=== PATIENT | male | born 1945 | race Caucasian/White ===

== ENCOUNTER 2016-03-01 06:03 | Day surgery (SDC) | payer MEDICARE ==
[~2016-03-01 06:03] MED LIST: CEFAZOLIN SODIUM 2 GRAM PREMIX 100 ML IV SCH; IV START KIT ONE; LACTATED RINGERS 1,000 ML ONE
[2016-03-01] MEDS ORDERED: CEFAZOLIN SODIUM 2 GRAM PREMIX 100 ML IV ONE (06:29)
[2016-03-01] MEDS ORDERED: MIDAZOLAM HCL 5 MG/5 ML VIAL ONE (06:50)
[2016-03-01] MEDS ORDERED: FENTANYL 100 MCG/2 ML VIAL ONE (06:50)
[2016-03-01] MEDS ORDERED: PROPOFOL 0 ML IV ONE (06:50)
[2016-03-01] MEDS ORDERED: BUPIVACAINE 0.5% (PRES FREE) 30 ML VIAL ONE (06:52)
[2016-03-01] MEDS ORDERED: KETOROLAC TROMETHAMINE 30 MG/ML 1 ML VIAL ONE (07:57)
--- NOTE | 2016-03-01 08:24 | PCMBPN ---
Brief Post Op Note: Date of Procedure: 03/01/16 Preoperative Diagnosis: 1. left carpal tunnel syndrome Postoperative Diagnosis: 1. [Same] Procedure: left open carpal tunnel release Surgeon: Arie Castaneda MD Assist: None Anesthesia: Local with sedation (10mL 0.5% marcaine injected into the incision) Findings: as expected, the median nerve was protected as the transverse carpal ligament was transected Condition: Stable vitals, transferred to pacu Complications: None IV Fluids: 900 mLs of LR Urine Output:0 mLs Estimated Blood Loss:5 mLs Tourniquet Time: 12 min at 250mmHg Specimens: [N/A] Implants: None Drains: [N/A] PLAN: NWB on the RUE. Splint for comfort. Oxycodone for pain control post-op.
--- NOTE | 2016-03-01 08:33 | HP ---
DATE OF CLINIC: 02/24/2016 REYNA FOSTER : 1945 PLANNED PROCEDURE: Left Hand Open Carpal Tunnel Release DATE OF SURGERY: March 01, 2016 SURGEON: Arie Castaneda M.D. HISTORY OF PRESENT ILLNESS Reyna Foster is a 70 year old male. * Medication list reviewed with patient allergy list reviewed with patient. * Tried NSAIDS * Has not tried Physical Therapy Has tried night time bracing for right side * Has not tried Injections The patient is a 70 yr old male who is RHD who present to the office with complaints of bilateral hand numbness and tingling. 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 He states pain is worse at night and often has to shake his hands. His symptoms are worse on the left hand. He has constant numbness in both hands in a median nerve distribution. He returns to the office today to talk about moving forward with a left hand open carpal tunnel release. The patient states that he has finished a big portion of his [place] home remodel. He does think his symptoms and parasthesias in his left thumb, index, and long finger are improved now that he is not doing the remodeling work but he would still like to move ahead with surgery. He is here today to discuss the risks and benefits associated with a left open carpal tunnel release. PMH: He has tried wearing removal wrist braces and the discomfort has awoken him at night. He does not have any neck pain. He has not had any surgeries or injections in either hand and would like to talk to me about his options. The patient states he has already had an EMG/NCV study performed by Dr. Galaviz concerning for a left and right carpal tunnel symptoms. He is here today to discuss about his options. CURRENT MEDICATION * *Supplement Miscellaneous Fish oil, 0 days, 0 refills * Ibuprofen 200 MG Tablet as needed 0 days, 0 refills * Lisinopril-Hydrochlorothiazide 20-12.5 MG Tablet TAKE ONE TABLET BY MOUTH EVERY DAY, 90 days, 2 refills * Probenecid 500 MG Tablet 1 once a day TAKE ONE TABLET BY MOUTH TWICE A DAY, 180 days, 1 refills PAST MEDICAL/SURGICAL HISTORY Reported: Medical: A history of cancer skin cancer - 03/2011, history of Arthritis, Gout, Hypertension, and Vertigo. Surgical / Procedural: Arthroscopy MM left knee - 2001. Basal Cell CA. SOCIAL HISTORY Behavioral: Daily coffee consumption and daily tea consumption. No tobacco use, not a current smoker, not a former smoker, and not chewing tobacco. Never smoked. Smoking status: Never smoker. Alcohol: Alcohol Occ. 2 drinks per week, alcohol use 2 drinks a week, and a social drinker. Drug Use: Not using drugs. ALLERGIES * Allopurinol Reaction: Skin Rashes/Hives FAMILY HISTORY Cancer GM-Colon Family History Diabetes Melliutus Sister Hypertension Family medical history Mother - OA Father - prostate cancer REVIEW OF SYSTEMS Systemic: No fever and no recent weight change. Cardiovascular: No chest pain or discomfort and no palpitations. Pulmonary: No cough and no wheezing. Gastrointestinal: No nausea, no vomiting, no abdominal pain, and no diarrhea. Hematologic: No easy bleeding (no blood clots). Neurological: No motor disturbances and no sensory disturbances. Skin: No skin lesions and no rash. PHYSICAL FINDINGS * Vitals taken 02/24/2016 01:50 pm BP-Sitting L 133/80 mmHg 100 - 120/60 - 80 BP Cuff Size Regular Pulse Rate-Sitting 97 bpm 50 - 100 Temp-Oral 98.8 F 96 - 101 Height 68 in 64 - 74 Weight 227 lbs 123 - 215 Body Mass Index 34.5 kg/m2 Body Surface Area 2.16 m2 Pain Level 1 General Appearance: * Well developed. * In no acute distress. Eyes: General/bilateral: Extraocular Movements: * Normal. Lungs: * Clear to auscultation. * No wheezing was heard. * No rales/crackles were heard. Cardiovascular: Heart Rate and Rhythm: * Heart rate was normal. * Heart rhythm regular. Abdomen: Palpation: * Abdominal non-tender. Neurological: * Oriented to time, place, and person. Motor: * Dominant Hand = Right Hand. * Dominant Hand = Left Hand. PHYSICAL FINDINGS RIGHT EXTREMITY Wrist Appearance: No gross abnormalities. Normal [id number] and no gross abnormalities are appreciated. AROM Flexion: 60 degrees Extension: 50 degrees Supination: 80 degrees Pronation: 90 degrees Palpation Wrist is non-tender to touch Strength (0-5/5) Wrist Flexion: 5/5 Wrist Extension: 5/5 Wrist Supination: 5/5 Wrist Pronation: 5/5 Head Resident: 5/5 Intrinsics: 5/5 EPL, FF, FE: 5/5 Pinch Mechanism: Normal Sensation (Wrist): gross sensation to light touch is present Median: Decreased Ulnar: Normal Radial: Normal Vascular Exam Radial Pulse: 2+ Other (Wrist) Atrophy/Asymmetry: None Surgical Scars: None Francisco's Test: Negative Tinel's Test - Carpal Tunnel: Negative Phalen's Test: POSITIVE Median Nerve Compression Test: POSITIVE PHYSICAL FINDINGS LEFT EXTREMITY Wrist Appearance: No gross abnormalities. Normal [id number] and no gross abnormalities are appreciated. AROM Flexion: 50 degrees Extension: 50 degrees Supination: 80 degrees Pronation: 90 degrees Palpation Wrist is nontender to touch Strength (0-5/5) Wrist Flexion: 5/5 Wrist Extension: 5/5 Wrist Supination: 5/5 Wrist Pronation: 5/5 Head Resident: 5/5 Intrinsics: 5/5 EPL, FF, FE: 5/5 Pinch Mechanism: Normal Sensation (Wrist): gross sensation to light touch is present Median: Decreased (feels more numb than the right side subjectively) Ulnar: Normal Radial: Normal Vascular Exam Radial Pulse: 2+ Other (Wrist) Atrophy/Asymmetry: None Surgical Scars: None Francisco's Test: Negative Tinel's Test - Carpal Tunnel: Negative Phalen's Test: POSITIVE Median Nerve Compression Test: POSITIVE PREVIOUS TESTS * Test: CBC WITH DIFF Report Date: 02/16/2016 WBC 6.2 10*3/mL MCV 88.1 fL RBC 5.22 10*6/uL NEUTROPHILS 47.0 % MCH 29.3 pg MCHC 33.3 g/dL RDW 12.8 % PLATELET COUNT 223 10*3/mL IMM NEUT % 0.5 % IMM NEUT # 0.0 10*3/mL MONOCYTES 10.4 % BASOPHIL 0.8 % EOSINOPHIL 3.2 % High HCT 46.0 % HGB 15.3 g/L LYMPHOCYTE 38.1 % ANC 2.9 10*3/mL * Test: COMPREHENSIVE METABOLIC PANEL Report Date: 02/16/2016 ALT/SGPT 20 U/L ALBUMIN 4.1 g/dL ALB/GLOB RATIO 1.7 BUN 22 mg/dL BUN/CREAT RATIO 22 High CALCIUM 9.4 mg/dL GLUCOSE 99 mg/dL CREATININE 1.0 mg/dL SODIUM 140 meq/L POTASSIUM 4.3 meq/L CHLORIDE 102 meq/L CARBON DIOXIDE 31 meq/L ANION GAP 11 meq/L TOT PROTEIN 6.5 g/dL GLOBULIN 2.4 g/dL BILI,TOTAL 0.5 mg/dL AST/SGOT 14 U/L ALK PHOSPHATASE 38 U/L GFR 74 IMAGING 02.08.2016--3 views of the right and left wrists do not show any signs of gross osseous problems, fractures or any abnormalities. The radiologist describes a minor cortical irregularity of the ulnar side of the radius. ASSESSMENT Arie Castaneda MD made the following assessments * Carpal tunnel syndrome -right wrist * Carpal tunnel syndrome -left wrist PLAN * OTHER OxyCODONE HCl 5 MG TABS, as directed: one tab by mouth every 4-6 hours as needed for pain, 30 days, 0 refills Arie Castaneda MD ordered the following therapy * Decompression of median nerve at carpal tunnel -left THERAPY * Patient fall risk screen negative. * Patient eligible for fall risk assessment. * Patient received fall risk assessment. SURGICAL CONSENT We have discussed surgical options including left hand open carpal tunnel release and non-operative management. The patient and I discussed his options and he would like to move forward with surgery. I described to him the goal of the surgery is to provide more room and less compression on the median nerve. I described how I would perform the open transection of the transverse carpal ligament as I protected the median nerve. I told the patient that I could not guarantee complete resolution of his symptoms. The goal of the surgery is to stop the progression and hopefully help decrease his parasthesias. I described risks associated with surgery including, but not limited to, persistent parasthesias, pillar pain, persistent pain in the wrist, infection, wound problems, injury to surrounding nerves and blood vessels, injury to the median nerve or its branches, anesthesia risks as well as other problems. The patient then agreed to proceed with the surgery and signed the consent form. We then talked about the post-op rehab plan. The patient was counseled in detail regarding the diagnosis, treatment options available, prognosis of each treatment option and the potential risks and complications. The risks of surgery include, but are not limited to, anesthetic , neurovascular complications, pulmonary embolism, deep vein thrombosis, wound dehiscence, failure of any or all of the discussed procedures, infection of the joint or surrounding soft tissue, need for revision surgery, chronic pain, limitations in activities of daily living, inability to return to work, and loss of normal range of motion or functional use of the extremity. There is the possibility of failure over time that may require additional operative or non-operative treatment. The patient acknowledged that there are a number of perioperative risks not mentioned here and would still like to proceed. The patient is aware of and understands these risks, and wishes to proceed with the proposed surgical procedure and other procedures as indicated at the time of surgery. The preoperative instructions were reviewed with the patient and all questions were answered. CARE TEAM Shena Cortes PA-C Physician Volleyball Assistant Coach ERIC/sg
[2016-03-01] MEDS ORDERED: OXYCODONE HCL 5 MG TABLET PO PRN (08:38)
[2016-03-01] MEDS ORDERED: LACTATED RINGERS 1,000 ML IV SCH (08:38)
[2016-03-01] MEDS ORDERED: MORPHINE SULFATE 2 MG/ML SYRINGE IV PRN (08:38)
[2016-03-01] MEDS ORDERED: DIPHENHYDRAMINE HCL 50 MG/1 ML VIAL IV PRN (08:38)
[2016-03-01] MEDS ORDERED: ACETAMINOPHEN 325 MG TABLET PO PRN (08:38)
[2016-03-01] MEDS ORDERED: ONDANSETRON 4 MG/2ML 2 ML VIAL IV PRN (08:38)
[2016-03-01] MEDS ORDERED: IBUPROFEN 800 MG TABLET ONE (08:39)
[2016-03-01] MEDS ORDERED: IBUPROFEN 800 MG TABLET PO ONE (08:41)
--- NOTE | 2016-03-02 10:13 | OP ---
REYNA FOSTER : 1945 [id number] DATE OF SURGERY: March 01, 2016 PREOPERATIVE DIAGNOSIS: Left carpal tunnel syndrome POSTOPERATIVE DIAGNOSIS: SAME PROCEDURE: Left open carpal tunnel release SURGEON: Arie Castaneda M.D. REWARDS CONSULTANT: None ANESTHESIA: Local along with IV sedation administered by anesthesia and 10 mL of 0.50% Marcaine was injected into the incision for postop pain control. FINDINGS: As expected, the median nerve was protected as the transverse carpal ligament was transected. I did not appreciate any abnormalities when this was performed. CONDITION: The patient had stable vital signs and was transferred to the PACU. ESTIMATED BLOOD LOSS: 5 mL IV FLUID REPLACEMENT: 900 mL of LR URINE OUTPUT: 0 DRAINS: N/A TOURNIQUET TIME: 12 minutes at 250mm of mercury SPECIMENS: N/A IMPLANTS: None COMPLICATIONS: None PLAN: The patient will be nonweightbearing on the left upper extremity, splint for comfort and oxycodone for pain control. We will have the patient f/u in my office in one week for a wound check and most likely remove his sutures 2 weeks from surgery. INDICATIONS: The patient is a 70-old, right hand dominant male who has a history of bilateral carpal tunnel symptoms. The patient's left hand is more bothersome than the right. 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 He has tried bracing and is not interested in a steroid injection. After reviewing the options, the patient wanted to proceed with surgery. I reviewed with the patient the risks and benefits of surgery that include, but are not limited to persistent pain, persistent paresthesias in the median nerve distribution, as well as possible injury to surrounding local nerves and blood vessels as well as need for future surgery. I emphasized that though these complications are rare they do occur. The patient understands this and would like to proceed with surgery. PROCEDURE: Prior to taking the patient to the operating room, I signed and updated the History and Physical and confirmed with the patient that there were no changes. I signed the patient's left hand with my initials and the word "yes." After reviewing the risks and benefits of anesthesia with the anesthesia team the patient was ready to enter the OR. At this point the patient was brought from the preoperative area to the operating suite where the patient was placed on the OR bed in a supine position with a safety belt in place. The patient's left arm was placed on a on a hand table and the patient received IV sedation without difficulty or complications. A safety belt was secured on the patient's waist. The patient had bilateral SCDs on each foot for intra-operative DVT prophylaxis. Now the bed was turned 45 degrees. The patient had a non-sterile tourniquet placed on the arm and the tourniquet was set at 250mmHg. After this was checked, a Betadine scrub, paint and chlorhexidine prep was used to prep the left upper extremity. At this point a final time-out was performed. We confirmed that the patient's correct images were brought up on the view box. This included xrays of the left hand. In this final time-out we confirmed that the left side was the correct side that our procedure was a left carpal tunnel release and that the appropriate antibiotics (Ancef, 2 grams) were administered approximately 20 minutes prior to this time out. After the final time out, I used a sterile marker to draw a line from Giron's line designating the distal extent of my incision, which is lined up with the radial border of the ring finger by the wrist crease. The incision itself was 2.5cm in long which extended approximately to 1 finger breadth distal to the volar wrist crease. At this point, the patient received IV sedation and I used an Esmarch to exsanguinate the arm and I used a #15 blade to incise the skin after the tourniquet was elevated. A 90 degree hemostat was used to bluntly dissect through the subcutaneous tissue to the palmar fascia. A [place] retractor was then used to incise the palmar fascia and the transverse carpal ligament was then exposed. At this point I used the 90 degree clamp to dissect distally to find the distal extent of the transverse carpal ligament. A small area of fat was visualized. This would be the distal extent of the incision taking care to avoid the superficial radial arch more distally. A freer elevator was placed in the carpal tunnel superficial to the median nerve going from distal to proximal making sure the median nerve was protected. A freer elevator was placed in a manner so that it was radial to the hook of the hamate and I confirmed that I was not in Guyon's canal. At this point the transverse carpal ligament was incised with a [place] blade using the freer elevator to protect the median nerve. The proximal aspect of the incision was elevated with a Senne retractor and using blunt Stern scissors to free above and below the transverse carpal fascia that extended to the forearm fascia. Once this was expanded the proximal fascia was released under direct visualization. I was able to put my freer elevator proximally as well as distally confirming there were no bands still compressing the median nerve of the carpal tunnel. I then had the tourniquet dropped. I confirmed good hemostasis and inspected the nerve noting no abnormalities were appreciated. The bipolar cautery was used to coagulate some of the skin bleeders. The wound was then irrigated with normal saline. I then closed the wound with 4 horizontal mattress sutures. I then injected some local anesthetic (0.5% marcaine without epinephrine) for post-op pain relief. Xeroform, 4x4, Webril and a volar plaster splint with 2 JACLYN wraps was used for a dressing. At the end of the case all sponge and needle counts were correct. In the postop area the patient was awake and alert. The patient was able to fire her EPL, FF, FE, and intrinsics without a problem in her post-op splint. She had good pain control. The patient will return to my clinic in approximately 1 week to see if her incision is healed and ready to remove sutures. ERIC/jose raul CC: [facility]
== END 2016-03-01 09:21 | disposition home or self-care (01) ==
LOC: SDC 06:03
PROVIDERS: ATTEND Orthopaedic Surgery
PROC: 01N50ZZ Release Median Nerve, Open Approach (ICD-10-PCS; principal; 2016-03-01)
DX: G56.02 Carpal tunnel syndrome, left upper limb (principal); I10 Essential (primary) hypertension; Z88.8 Allergy status to other drugs, medicaments and biological substances